=== PATIENT | female | born 1960 | race Caucasian/White ===

== ENCOUNTER 2022-08-16 07:25 | Outpatient (CLI) | payer BC, SELFPAY | END 2022-08-16 07:26 | disposition home or self-care (01) | PROVIDERS: PCP Internal Medicine; Referring Provider Internal Medicine; Visit Provider Internal Medicine | DX: Z00.00 Encounter for general adult medical examination without abnormal findings (principal); E11.9 Type 2 diabetes mellitus without complications; I10 Essential (primary) hypertension; E66.9 Obesity, unspecified; E78.1 Pure hyperglyceridemia; E78.5 Hyperlipidemia, unspecified | CPT/HCPCS: 80053; 80061; 82043; 82570 ==

== ENCOUNTER 2022-08-25 08:31 | Outpatient (CLI) | payer BC, SELFPAY ==
--- NOTE | 2022-08-25 08:45 | CRLHL7_ITS ---
For Patients: As a result of the Cures Act, medical imaging exams and procedure reports are released immediately into your electronic medical record. You may view this report before your referring provider. If you have questions, please contact your health care provider. BILATERAL SCREENING MAMMOGRAM WITH COMPUTER-AIDED DETECTION AND TOMOSYNTHESIS TECHNIQUE: CC and MLO views were obtained. These mammographic images have been obtained using full-field digital technique. These mammographic images were interpreted with the benefit of computer-aided detection. Breast tomosynthesis was used in this interpretation. COMPARISON FILM: 06/16/21, 06/26/18, 06/08/16. FINDINGS: The breasts are heterogeneously dense, which may obscure small masses. IMPRESSION: There is no radiographic evidence for malignancy. ASSESSMENT: BI-RADS Category 2: Benign RECOMMENDATION: Routine screening mammogram in 1 year. A lay language report of this examination will be provided to the patient. MERY LAY M.D. Diagnostic/Breast Radiologist [email or web address] VANNA/keyla Transcribed: 08/25/2022, 1:[address]/Dictated by: Mery Lay MD @ 08/25/2022 9:39:00 AM (Electronically Signed)
== END 2022-08-25 08:32 | disposition home or self-care (01) ==
PROVIDERS: PCP Internal Medicine; Visit Provider Internal Medicine
DX: Z12.31 Encounter for screening mammogram for malignant neoplasm of breast (principal); R92.2 Inconclusive mammogram
CPT/HCPCS: 77063; 77067

== ENCOUNTER 2023-08-22 07:30 | Outpatient (CLI) | payer BC, SELFPAY | END 2023-08-22 07:31 | disposition home or self-care (01) | LOC: NFLDREF 08-26 08:35 | PROVIDERS: PCP Internal Medicine; Referring Provider Internal Medicine; Visit Provider Internal Medicine | DX: E11.9 Type 2 diabetes mellitus without complications (principal); E66.9 Obesity, unspecified; E78.5 Hyperlipidemia, unspecified; I10 Essential (primary) hypertension | CPT/HCPCS: 80053; 80061; 82043; 82570 ==

== ENCOUNTER 2023-09-29 07:30 | Outpatient (RCR) | payer BC, SELFPAY | END 2024-01-27 23:59 | disposition home or self-care (01) | PROVIDERS: PCP Internal Medicine; Visit Provider Family Medicine | DX: S46.812A Strain of other muscles, fascia and tendons at shoulder and upper arm level, left arm, initial encounter (principal); Z51.89 Encounter for other specified aftercare | CPT/HCPCS: 97110; 97140; 97162 ==

== ENCOUNTER 2023-11-18 14:20 | Outpatient (CLI) | payer BC, SELFPAY ==
--- NOTE | 2023-11-18 14:40 | CRLHL7_ITS ---
For Patients: As a result of the Century Cures Act, medical imaging exams and procedure reports are released immediately into your electronic medical record. You may view this report before your referring provider. If you have questions, please contact your health care provider. BILATERAL SCREENING MAMMOGRAM WITH COMPUTER-AIDED DETECTION AND TOMOSYNTHESIS TECHNIQUE: CC and MLO views were obtained. These mammographic images have been obtained using full-field digital technique. These mammographic images were interpreted with the benefit of computer-aided detection. Breast Tomosynthesis was used in this interpretation. COMPARISON FILM: 08/25/22, 06/16/21, 06/26/18. FINDINGS: There are scattered areas of fibroglandular density. IMPRESSION: There is no radiographic evidence for malignancy. ASSESSMENT: BI-RADS Category 1: Negative RECOMMENDATION: Routine screening mammogram in 1 year. A lay language report of this examination will be provided to the patient. Sergio Herrera M.D. Diagnostic Radiologist [email or web address] SP/Dictated by: Sergio Herrera MD @ 11/28/2023 10:02:00 AM (Electronically Signed)
== END 2023-11-18 14:21 | disposition home or self-care (01) ==
LOC: MAMMO 14:21
PROVIDERS: PCP Internal Medicine; Visit Provider Internal Medicine
DX: Z12.31 Encounter for screening mammogram for malignant neoplasm of breast (principal)
CPT/HCPCS: 77063; 77067

== ENCOUNTER 2024-09-11 07:35 | Outpatient (CLI) | payer BC, SELFPAY | END 2024-09-11 07:36 | disposition home or self-care (01) | LOC: NFLDREF 09-14 15:33 | PROVIDERS: PCP Internal Medicine; Referring Provider Internal Medicine; Visit Provider Internal Medicine | DX: E11.9 Type 2 diabetes mellitus without complications (principal); I10 Essential (primary) hypertension; E78.5 Hyperlipidemia, unspecified; Z79.84 Long term (current) use of oral hypoglycemic drugs; Z79.85 Long-term (current) use of injectable non-insulin antidiabetic drugs | CPT/HCPCS: 80053; 80061; 82043; 82570 ==

== ENCOUNTER 2024-11-20 14:25 | Outpatient (CLI) | payer BC, SELFPAY ==
--- NOTE | 2024-11-20 14:40 | MM_ITS ---
Patient: STEFANIE QUIGLEY Facility:?[facility] Patient ID:?[id number] Site [id number]:?[id number]. Site :?[id number] Study:?XRay-Breast 3D [facility] SCREENING-11/20/2024 2:46:30 PM Ordering Physician:?Suzy Chang Final Report: INDICATION: BILATERAL SCREENING MAMMOGRAM, ASYMPTOMATIC 64 Y/O FEMALE COMPARISON: 11/18/2023, 08/25/2022, 06/16/2021 TECHNIQUE: Digital mammogram in CC and MLO projections including computer-aided detection (CAD) and tomosynthesis. BREAST COMPOSITION: There are scattered areas of fibroglandular density. FINDINGS: No suspicious findings. ASSESSMENT: BI-RADS 1 Negative RECOMMENDATION: Annual screening mammogram. A lay language report of this examination will be provided to the patient. Dictated by: Sergio Herrera MD @ 11/22/2024 09:25:15 Signed by:?Sergio Herrera MD @11/22/2024 9:25:15 AM (Electronic Signature)
== END 2024-11-20 14:26 | disposition home or self-care (01) ==
LOC: MAMMO 14:25
PROVIDERS: PCP Internal Medicine; Visit Provider Internal Medicine
DX: Z12.31 Encounter for screening mammogram for malignant neoplasm of breast (principal)
CPT/HCPCS: 77063; 77067

== ENCOUNTER 2025-01-03 07:50 | Outpatient (CLI) | payer BC, SELFPAY ==
--- NOTE | 2025-01-03 09:00 | P.ANES_ITS ---
Anesthesia Charges Start Date/Time Anesthesia Start Date: 01/03/25 Anesthesia Start Time: 08:35 Stop Date/Time Anesthesia Stop Date: 01/03/25 Anesthesia Stop Time: 08:58 Coding CPT Codes CPT Codes: MUNIRA LWR INTST SCR COLSC - 85268 ([id number]) P2 - PATIENT W/MILD SYST DISEASE, QK - AUTO SPECIALTY SERVICES MANAGER 2-4 CNCRNT ANES PROC, QX - CONSUMER ELECTRONIC RETAIL SPECIALIST SVC W/ MD MED DIRECTION
--- NOTE | 2025-01-03 09:00 | W.ANESCHARGE ---
Anesthesia Charges Start Date/Time Anesthesia Start Date: 01/03/25 Anesthesia Start Time: 08:35 Stop Date/Time Anesthesia Stop Date: 01/03/25 Anesthesia Stop Time: 08:58 Coding CPT Codes CPT Codes: MUNIRA LWR INTST SCR COLSC - 86065 ([id number]) P2 - PATIENT W/MILD SYST DISEASE, QK - ONLINE USER EXPERIENCE STRATEGIST 2-4 CNCRNT ANES PROC, QX - HUMAN SERVICE TECHNICIAN SVC W/ MD MED DIRECTION
--- NOTE | 2025-01-03 09:59 | P.ANES_ITS ---
Anesthesia Charges Start Date/Time Anesthesia Start Date: 01/03/25 Anesthesia Start Time: 08:35 Stop Date/Time Anesthesia Stop Date: 01/03/25 Anesthesia Stop Time: 08:58 Coding CPT Codes CPT Codes: MUNIRA LWR INTST SCR COLSC - 13778 ([id number]) P2 - PATIENT W/MILD SYST DISEASE, QK - STONE AND PLATE PREPARER APPRENTICE 2-4 CNCRNT ANES PROC, QX - PAINTER ROUGH SVC W/ MD MED DIRECTION
--- NOTE | 2025-01-03 09:59 | W.ANESCHARGE ---
Anesthesia Charges Start Date/Time Anesthesia Start Date: 01/03/25 Anesthesia Start Time: 08:35 Stop Date/Time Anesthesia Stop Date: 01/03/25 Anesthesia Stop Time: 08:58 Coding CPT Codes CPT Codes: MUNIRA LWR INTST SCR COLSC - 86319 ([id number]) P2 - PATIENT W/MILD SYST DISEASE, QK - COIL TAPER 2-4 CNCRNT ANES PROC, QX - CORRECTIONAL THERAPY DIRECTOR SVC W/ MD MED DIRECTION
== END 2025-01-03 07:51 | disposition home or self-care (01) ==
LOC: OP CLINIC 07:50
PROVIDERS: PCP Internal Medicine; Visit Provider Internal Medicine
DX: Z12.11 Encounter for screening for malignant neoplasm of colon (principal); K64.9 Unspecified hemorrhoids; Z86.0100 Personal history of colon polyps, unspecified
CPT/HCPCS: 00812; 45378; J2704